=== PATIENT | female | born 2000 | race Asian ===

== ENCOUNTER 2021-03-29 12:14 | Outpatient (REF) | payer OTHER, SELFPAY ==
[2021-03-29 13:46] LABS: Basophils Percent Auto 0.6 % (0-2); Eosinophils Percent Auto 0.6 % (0-4); Hematocrit 37.3 % (37-47); Hemoglobin 12.4 g/dl (12.0-16.0); Imm Gran Abs Auto 0.01 X10*3/uL (0.00-0.03); Imm Gran Pct Auto 0.2 % (0.0-0.4); Lymphocytes Absolute Auto 1.7 X10*3/uL (1.2-4.9); Lymphocytes Percent Auto 35.3 % (20-40); MANUAL DIFF FLAG NO; Mean Corpuscular HGB Conc 33.2 g/dl (31.0-35.0); Mean Corpuscular Hemoglobin 30.2 pg (27.0-33.0); Mean Corpuscular Volume 90.8 fL (80-98); Mean Platelet Volume 9.4 fL (9.4-12.3); Monocytes Absolute Auto 0.3 X10*3/uL (0.1-1.2); Monocytes Percent Auto 5.4 % (2-11); Neutrophils Absolute Auto 2.8 X10*3/uL (2.0-8.3); Neutrophils Percent Auto 57.9 % (45-73); Platelet Count 344 X10*3/uL (160-400); Red Blood Count 4.11 X10*6/uL (4.20-5.50); Red Cell Distribution Width 12.4 % (11.0-16.0); White Blood Count 4.8 X10*3/uL (4.8-10.8)
[2021-03-29 14:25] LABS: Anion Gap 11 (12-20); Blood Urea Nitrogen 10 mg/dL (9-16); Calcium 9.1 mg/dL (8.4-10.2); Carbon Dioxide 29 mmol/L (22-29); Chloride 105 mmol/L (96-108); Estimated Glomerular Filt Rate > 60; Glucose Random 88 mg/dL (60-115); Potassium 4.5 mmol/L (3.3-5.1); Sodium 140 mmol/L (135-145)
[2021-03-31 05:47] LABS: Rubella IgG Antibody 7.36 Index
[2021-04-01 03:31] LABS: ~Hepatitis B Surface Antibody REACTIVE (Nonreactive)
[2021-04-02 16:32] LABS: TS Negative Control Passed; TS Panel A 0; TS Panel B 0; TS Positive Control Passed; TSpotTB Negative (SeeBelow)
== END 2021-03-29 12:15 | disposition home or self-care (01) ==
LOC: HO.10HDL 12:14
PROVIDERS: Visit Provider Internal Medicine
DX: Z01.84 Encounter for antibody response examination (principal); Z11.1 Encounter for screening for respiratory tuberculosis
CPT/HCPCS: 36415; 80048; 85025; 86481; 86706; 86735; 86762; 86765; 86787

== ENCOUNTER 2022-01-14 15:41 | Outpatient (REF) | payer OTHER, SELFPAY ==
[2022-01-14 15:58] LABS: MANUAL DIFF FLAG NO
[2022-01-14 16:28] LABS: Basophils Percent Auto 0.3 % (0-2); Eosinophils Percent Auto 0.3 % (0-4); Hematocrit 39.4 % (37.0-47.0); Hemoglobin 13.2 g/dl (12.0-16.0); Imm Gran Abs Auto 0.01 X10*3/uL (0.00-0.03); Imm Gran Pct Auto 0.2 % (0.0-0.4); Lymphocytes Percent Auto 30.4 % (20-40); Mean Corpuscular HGB Conc 33.5 g/dl (31.0-35.0); Mean Corpuscular Hemoglobin 29.4 pg (27.0-33.0); Mean Corpuscular Volume 87.8 fL (80.0-98.0); Mean Platelet Volume 9.1 fL (9.4-12.3); Monocytes Absolute Auto 0.3 X10*3/uL (0.1-1.2); Monocytes Percent Auto 4.8 % (2-11); Neutrophils Absolute Auto 4.1 x10*3/uL (2.0-8.3); Platelet Count 377 X10*3/uL (160-400); Red Blood Count 4.49 X10*6/uL (4.20-5.50); Red Cell Distribution Width 12.2 % (11.0-16.0); White Blood Count 6.4 X10*3/uL (4.8-10.8)
[2022-01-14 16:50] LABS: Anion Gap 11 (12-20); Blood Urea Nitrogen 12 mg/dL (9-16); Calcium 9.9 mg/dL (8.4-10.2); Carbon Dioxide 26 mmol/L (22-29); Chloride 106 mmol/L (96-108); Estimated Glomerular Filt Rate > 60; Glucose Random 85 mg/dL (60-115); Potassium 4.3 mmol/L (3.3-5.1); Sodium 139 mmol/L (135-145)
[2022-01-16 17:41] LABS: TS Negative Control Passed; TS Panel A 0; TS Panel B 0; TS Positive Control Passed; TSpotTB Negative (Negative)
== END 2022-01-14 15:42 | disposition home or self-care (01) ==
LOC: HO.LAB 15:41
PROVIDERS: PCP Internal Medicine; Visit Provider Internal Medicine
DX: Z02.0 Encounter for examination for admission to educational institution (principal); Z11.1 Encounter for screening for respiratory tuberculosis
CPT/HCPCS: 36415; 80048; 85025; 86481; 86735; 86762

== ENCOUNTER 2022-10-24 13:58 | Outpatient (REF) | payer OTHER, SELFPAY ==
[2022-10-24 14:08] LABS: MANUAL DIFF FLAG NO
[2022-10-24 14:31] LABS: Basophils Percent Auto 0.5 % (0-2); Eosinophils Percent Auto 0.5 % (0-4); Hematocrit 41.9 % (37.0-47.0); Hemoglobin 13.9 g/dl (12.0-16.0); Imm Gran Abs Auto 0.02 X10*3/uL (0.00-0.03); Imm Gran Pct Auto 0.3 % (0.0-0.4); Mean Corpuscular HGB Conc 33.2 g/dl (31.0-35.0); Mean Corpuscular Hemoglobin 29.8 pg (27.0-33.0); Mean Corpuscular Volume 89.7 fL (80.0-98.0); Mean Platelet Volume 9.1 fL (9.4-12.3); Monocytes Absolute Auto 0.4 X10*3/uL (0.1-1.2); Monocytes Percent Auto 5.7 % (2-11); Neutrophils Absolute Auto 3.9 x10*3/uL (2.0-8.3); Platelet Count 389 X10*3/uL (160-400); Red Blood Count 4.67 X10*6/uL (4.20-5.50); Red Cell Distribution Width 12.2 % (11.0-16.0); White Blood Count 6.3 X10*3/uL (4.8-10.8)
[2022-10-24 14:56] LABS: Anion Gap 14 (12-20); Blood Urea Nitrogen 15 mg/dL (9-16); Calcium 9.9 mg/dL (8.4-10.2); Carbon Dioxide 28 mmol/L (22-29); Chloride 105 mmol/L (96-108); Estimated Glomerular Filt Rate > 60; Glucose Random 80 mg/dL (60-115); Potassium 4.7 mmol/L (3.3-5.1); Sodium 142 mmol/L (135-145)
[2022-10-27 09:13] LABS: TS Negative Control Passed; TS Panel A 0; TS Panel B 1; TS Positive Control Passed; TSpotTB Negative (Negative)
== END 2022-10-24 13:59 | disposition home or self-care (01) ==
LOC: HO.LAB 13:58
PROVIDERS: PCP Internal Medicine; Visit Provider Internal Medicine
DX: Z02.0 Encounter for examination for admission to educational institution (principal); Z11.1 Encounter for screening for respiratory tuberculosis
CPT/HCPCS: 36415; 80048; 85025; 86481

== ENCOUNTER 2023-02-11 15:14 | Outpatient (REF) | payer OTHER, SELFPAY ==
--- NOTE | ~2023-02-11 | XR_ITS ---
EXAMINATION: XR SHOULDER, RIGHT XR CLAVICLE, RIGHT CLINICAL INFORMATION: Pain. COMPARISON: None available. TECHNIQUE: AP external rotation, Grashey, scapular Y, and axillary views of the right shoulder. Straight AP and cephalad angulated AP views of the right clavicle. FINDINGS: The bones and soft tissues are normal. No fracture. Glenohumeral and acromioclavicular alignment is anatomic with normal joint space. No abnormal soft tissue calcifications. XR/XR shoulder RT min 2V IMPRESSION: Normal right shoulder.
--- NOTE | ~2023-02-11 | XR_ITS ---
EXAMINATION: XR SHOULDER, RIGHT XR CLAVICLE, RIGHT CLINICAL INFORMATION: Pain. COMPARISON: None available. TECHNIQUE: AP external rotation, Grashey, scapular Y, and axillary views of the right shoulder. Straight AP and cephalad angulated AP views of the right clavicle. FINDINGS: The bones and soft tissues are normal. No fracture. Glenohumeral and acromioclavicular alignment is anatomic with normal joint space. No abnormal soft tissue calcifications. XR/XR clavicle RT IMPRESSION: Normal right shoulder.
== END 2023-02-11 15:15 | disposition home or self-care (01) ==
LOC: HO.XRAY 15:14
PROVIDERS: PCP Internal Medicine; Visit Provider Internal Medicine
DX: M25.511 Pain in right shoulder (principal)
CPT/HCPCS: 73000; 73030

== ENCOUNTER 2023-03-31 14:41 | Outpatient (REF) | payer OTHER, SELFPAY ==
--- NOTE | ~2023-03-31 | MR_ITS ---
EXAMINATION: MR SHOULDER WITHOUT CONTRAST, RIGHT CLINICAL INFORMATION: Right shoulder pain and decreased range of motion. Evaluate for a rotator cuff tendon tear. COMPARISON: Right clavicle and shoulder radiographs dated 02/11/2023. TECHNIQUE: MRI of the shoulder without contrast was performed on a high-field scanner. FINDINGS: ROTATOR CUFF: Intact. No muscle atrophy or fatty infiltration. BICEPS: Intact. CORACOACROMIAL ARCH: The undersurface of the acromion is minimally curved with no subacromial spur. The acromioclavicular joint is normal. LABRUM/CAPSULE: No labral tear. Intact joint capsule. GLENOHUMERAL JOINT/MARROW: Unremarkable. MR/MR shoulder RT wo con IMPRESSION: Unremarkable examination.
== END 2023-03-31 14:42 | disposition home or self-care (01) ==
LOC: HO.MRI 14:41
PROVIDERS: PCP Internal Medicine; Visit Provider Internal Medicine
DX: M25.511 Pain in right shoulder (principal)
CPT/HCPCS: 73221

== ENCOUNTER 2023-04-29 09:49 | Outpatient (AMB) | payer OTHER, SELFPAY ==
[2023-04-29 10:01] VITALS: BMI 21.9
--- NOTE | 2023-04-29 10:01 | A.OFFVIS_ITS ---
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 States pain started about 2 yrs ago after lifting a heavy table. Reports pain is from collar bone to her shoulder blade. Pain is worse after prolong use of arm and at times has limited ROM. At times has neck pain, has shooting pain radiating down her arm. She is able to lift a gallon of milk with pain. Denies numbness or tingling. Seen by her PCP who ordered P.T. Patient has tried physical therapy but relief was temporarily. 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 She was seen by her PCP who ordered physical therapy which provided her transient relief. She states she has pain and occasional limited ROM located in her collar bone which radiates to her shoulder blade. Her pain is aggravated with prolonged use of arm. She also c/o occasional shooting neck pain which radiates down to her arm. She experiences pain with lifting a gallon of milk. She denies any numbness or tingling. 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 Review of Systems Const All systems reviewed & are unremarkable except as noted in HPI and below Physical Exam Vital Signs: BMI result Body Mass Index 21.9 Const General: cooperative, healthy appearing, comfortable, no acute distress, well developed and alert Orientation/consciousness: patient oriented x3 HEENT Head: Yes normal to inspection, Yes normocephalic and Yes atraumatic Eyes General: appearance normal, both eyes and all related structures Resp Effort & Inspection: normal respiratory effort and able to speak in complete sentences Cardio Rate: regular rate Peripheral pulses: Peripheral pulses 2+ throughout GI Palpation (GI): Soft to palpation Skin Lesions: no lesions Rashes: no rashes Neuro General: patient oriented x3 Extrem Other: Right shoulder: Normal to inspection. Tenderness over the bicipital groove and along the deltoid region of the shoulder. Forward flexion to 175, external rotation to 90, internal rotation to S1. 5/5 RTC strength. Positive Tapia. NVI. Results Reviewed Results Reviewed: XR shoulder RT min 2V IMPRESSION: Normal right shoulder. [address] [address] Magnetic Resonance Report Signed Patient: Maureen Parmar MR#: [id number] : 2000 Acct:[id number] Age/Sex: 22 / F ADM Date: 03/31/23 Loc: HO.MRI Attending Dr: Brandt Capellan MD Ordering Physician: Brandt Capellan MD Date of Service: 03/31/23 Procedure(s): MR shoulder RT wo con Accession Number(s): [id number] cc: Brandt Capellan MD~ EXAMINATION: MR SHOULDER WITHOUT CONTRAST, RIGHT CLINICAL INFORMATION: Right shoulder pain and decreased range of motion. Evaluate for a rotator cuff tendon tear. COMPARISON: Right clavicle and shoulder radiographs dated 02/11/2023. TECHNIQUE: MRI of the shoulder without contrast was performed on a high-field scanner. FINDINGS: ROTATOR CUFF: Intact. No muscle atrophy or fatty infiltration. BICEPS: Intact. CORACOACROMIAL ARCH: The undersurface of the acromion is minimally curved with no subacromial spur. The acromioclavicular joint is normal. LABRUM/CAPSULE: No labral tear. Intact joint capsule. GLENOHUMERAL JOINT/MARROW: Unremarkable. MR/MR shoulder RT wo con IMPRESSION: Unremarkable examination. Assessment & Plan Assessment & Plan (1) Biceps tendonitis on right: Code(s): M75.21 - Bicipital tendinitis, right shoulder (2) Rotator cuff impingement syndrome of right shoulder: Code(s): M75.41 - Impingement syndrome of right shoulder Plan We discussed options which include PT, NSAIDs and injections. The patient will defer on the injection today and proceed with PT and NSAIDs. I did send her a prescription of naproxen to take twice a day for 2 weeks and PRN thereafter. If symptoms persist or worsens over the next 6 weeks, patient will contact the office for an injection, otherwise follow-up as needed. Orders: Orders PT Evaluation and Treatment Today M75.21 - Bicipital tendinitis, right shoulder, M75.41 - Impingement syndrome of right shoulder Medications: New naproxen 500 mg PO BID 60 tabs 3RF 30 days M75.21 - Bicipital tendinitis, right shoulder, M75.41 - Impingement syndrome of right shoulder naproxen 500 mg PO BID 60 tabs 3RF 30 days S93.409A - Sprain of unspecified ligament of unspecified ankle, initial encounter Patient Instructions: Scribed for Angelica Gonzalez PA-C, by Paul Pompa medical cost consultant, on 04/29/2023 at 10:00 AM EST. I, Angelica Gonzalez PA-C, have personally reviewed and agree with the information entered by the scribe. Coding Level of Care Code New Pt Level 3 (15952) Diagnoses Biceps tendonitis on right M75.21 Rotator cuff impingement syndrome of right shoulder M75.41
== END 2023-04-29 10:51 | disposition home or self-care (01) ==
PROVIDERS: PCP Internal Medicine; Visit Provider Physician Assistant
DX: M75.21 Bicipital tendinitis, right shoulder (principal); M75.41 Impingement syndrome of right shoulder
CPT/HCPCS: 99203

== ENCOUNTER → 2023-04-29 09:49 | Outpatient (BNVA) | payer OTHER, SELFPAY | PROVIDERS: PCP Internal Medicine; Visit Provider Physician Assistant | DX: M75.41 Impingement syndrome of right shoulder (principal); M75.21 Bicipital tendinitis, right shoulder | CPT/HCPCS: 99202 ==

== ENCOUNTER 2023-06-12 11:00 | Outpatient (RCR) | payer OTHER, SELFPAY | END 2023-10-06 11:02 | disposition home or self-care (01) | LOC: HO.PTWFD 11:00 | PROVIDERS: PCP Internal Medicine; Visit Provider Internal Medicine | DX: M25.511 Pain in right shoulder (principal) | CPT/HCPCS: 97110; 97140; 97150; 97161; 97164; 97535 ==

== ENCOUNTER 2024-04-28 11:49 | Outpatient (REF) | payer OTHER, SELFPAY ==
[2024-04-28 13:05] LABS: MANUAL DIFF FLAG NO
[2024-04-28 13:23] LABS: Basophils Percent Auto 0.8 % (0-2); Eosinophils Percent Auto 0.6 % (0-4); Hematocrit 39.7 % (37.0-47.0); Hemoglobin 13.4 g/dl (12.0-16.0); Imm Gran Abs Auto 0.02 X10*3/uL (0.00-0.03); Imm Gran Pct Auto 0.4 % (0.0-0.4); Lymphocytes Absolute Auto 2.1 X10*3/uL (1.2-4.9); Lymphocytes Percent Auto 41.3 % (20-40); Mean Corpuscular HGB Conc 33.8 g/dl (31.0-35.0); Mean Corpuscular Hemoglobin 29.8 pg (27.0-33.0); Mean Corpuscular Volume 88.2 fL (80.0-98.0); Mean Platelet Volume 9.4 fL (9.4-12.3); Monocytes Absolute Auto 0.3 X10*3/uL (0.1-1.2); Monocytes Percent Auto 6.5 % (2-11); Neutrophils Absolute Auto 2.5 x10*3/uL (2.0-8.3); Neutrophils Percent Auto 50.4 % (45-73); Platelet Count 325 X10*3/uL (160-400); Red Cell Distribution Width 12.2 % (11.0-16.0)
[2024-04-28 13:57] LABS: Alanine Aminotransferase 70 U/L (0-31); Albumin Level 4.8 g/dL (3.5-5.0); Alkaline Phosphatase 126 U/L (39-117); Anion Gap 11 (12-20); Aspartate Amino Transferase 34 U/L (5-31); Bilirubin Total 0.8 mg/dL (0.0-1.0); Blood Urea Nitrogen 8 mg/dL (9-16); Calcium 9.8 mg/dL (8.4-10.2); Carbon Dioxide 27 mmol/L (22-29); Chloride 105 mmol/L (96-108); Estimated Glomerular Filt Rate > 60; Glucose Random 96 mg/dL (60-115); Potassium 4.1 mmol/L (3.3-5.1); Sodium 139 mmol/L (135-145); Total Protein 7.9 g/dL (6.5-8.0)
[2024-04-28 13:58] LABS: Free T4 (Free Thyroxine) 0.95 ng/dL (0.71-1.85); Thyroid Stimulating Hormone 1.22 uIU/mL (0.32-4.0); Vitamin D 25-OH Total 21.1 ng/mL (>30)
[2024-04-28 14:55] LABS: Vitamin B12 354 pg/mL (200-900)
[2024-04-29 10:37] LABS: Follicle Stimulating Hormone 3.9 mIU/mL; Lutenizing Hormone 9.7 mIU/mL
[2024-04-30 21:44] LABS: TS Negative Control Passed; TS Panel A 0; TS Panel B 0; TS Positive Control Passed; TSpotTB Negative (Negative)
== END 2024-04-28 11:50 | disposition home or self-care (01) ==
LOC: HO.10HDL 11:49
PROVIDERS: Visit Provider Internal Medicine
DX: Z00.00 Encounter for general adult medical examination without abnormal findings (principal); R53.83 Other fatigue; N94.6 Dysmenorrhea, unspecified
CPT/HCPCS: 36415; 80053; 82306; 82607; 83001; 83002; 84439; 84443; 85025; 86140; 86481

== ENCOUNTER 2025-06-28 10:56 | Outpatient (AMB) | payer OTHER, SELFPAY ==
--- OUTSIDE RECORDS SUMMARY | 2025-03-07 05:30 | XMS_ITS ---
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 Name Role Phone SHONNA ANGUIANO Unavailable [phone] REASON FOR VISIT IRREGULAR PERIODS Problems Problem Type SNOMED Code ICD Code Onset Dates Problem Status W/U Status Risk Notes Problem Abnormal uterine bleeding ([id number] 00) Abnormal uterine and vaginal bleeding, unspecified (N93.9) Active confirmed Encounters Encounter Location Date Provider Diagnosis [address] [address] 03/07/2025 SHONNA ANGUIANO Abnormal uterine and vaginal bleeding, unspecified N93.9 Assessments Encounter Date Diagnosis (ICD Code) Assessment Notes Treatment Notes Treatment Clinical Notes Section Notes 03/07/2025 Abnormal uterine and vaginal bleeding, unspecified (ICD-10 - N93.9) Plan Of Treatment No Information Progress Notes * MAUREEN CHAPMANDOB:2000 (25 yo F)Acc No.[id number]:03/07/2025 Progress Note Patient: MAUREEN HALLMAN Provider: Adela ANGUIANO MD :2000 A ge:24 Y S ex:Female Date:03/07/2025 Address:[address] [place] [address] Subjective: * Chief Complaints: * 1 . IRREGULAR PERIODS. * HPI: G YN (Problems): Maureen is a 24 yo G with LMP who presents as a new patient today. 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 24 year old female presents with c/o Abnormal bleeding:. * ROS: G eneral/Constitutional: Denies C hills. D enies F ever. D enies L ightheadedness. D enies W eight gain. D enies W eight loss. E NT: Denies N osebleed. E ndocrine: Denies A cne. D enies C old intolerance. D enies H eat intolerance. D enies H ot flashes. B reast: Denies B reast pain. D enies N ipple discharge.? G astrointestinal: Denies A bdominal pain. D enies B lood in stool.?Denies H ematemesis. D enies R ectal bleeding. H ematology: Denies E asy bruising. D enies F amily member with bleeding problems. W omen Only: Denies I rregular menses. D enies V aginal bleeding between periods. G enitourinary: Denies B lood in urine. * Medical History: Objective: * Vitals: * Examination: G eneral Examination: GENERAL APPEARANCE: pleasant, well nourished, in no acute distress, grain packer present in room. SKIN: warm and dry. G enitourinary - Female: ABDOMEN: soft, non-tender, no mass. EXTERNAL GENITALS: normal. URETHRAL MEATUS: normal. VAGINA: healthy pink mucosa without any lesions or abnormal discharge, no lacerations. ANUS/PERINEUM: normal. CERVIX: downward, normal appearing, no cervical movement tenderness. UTERUS: normal size, mobile, non tender. OVARIES: no masses felt in adnexa. P sychiatry: AFFECT: appropriate. ATTITUDE: cooperative. SPEECH: clear. Assessment: * Assessment: 1. A bnormal uterine and vaginal bleeding, unspecified - N93.9 (Primary) Plan: * Treatment: * Images: Billing Information: * Visit Code: * Procedure Codes: * Electronic signature of SHONNA ANGUIANO MD on 06/28/2025 at 01:56 PM EDT Sign off status: Pending * Provider: Adela ANGUIANO MD Date: 0 03/07/2025 Generated for Johnnie bojorquez/Dennis/Jakeitting on: 06/28/2025 01:56 PM EDT History and Physical Notes * Examination Category Sub-Category Detail Notes Category Not es Genitourinary - Female ABDOMEN: soft, non-tender, no mass EXTERNAL GENITALS: normal VAGINA: healthy pink mucosa without any lesions or abnormal discharge, no lacerations CERVIX: downward, normal jefry earing, no cervical movement tenderness UTERUS: normal size, mobile, non tender OVARIES: no masses felt in ad nexa URETHRAL MEATUS: normal ANUS/PERINEUM: normal Psychiatry ATTITUDE: cooperative AFFECT: appropriate SPEECH: clear General Examination GENERAL APPEARANCE: pleasant , well nourished, in no acute distress, grain packer present in room SKIN: warm and dry
--- NOTE | 2025-06-28 08:24 | MHC.PC.OV ---
Vital Signs 06/28/25 11:00 Height 5 ft 7 in Weight 153 lb BMI 24.0 BP 122/80 Blood Pressure Location Rt brachial Position Sitting Pulse 76 Pulse Source Pulse Oximeter Temp 97.8 F Temp Source Temporal Artery Scan Pulse Oximetry (%) 99 Oxygen Delivery Method Room Air Intake Visit Reasons: Routine/ Dr Capellan Hl7 Interface Developer Required: No Accompanied by: Self / Same As Patient Allergies No Known Allergies Allergy (Verified 06/28/25 11:03) Tobacco use date assessed: 06/28/25 Dental Screening Dental Screen Date: 06/28/25 Did you have a dental visit in the last 12 months?: Yes Did you have a dental problem in the last 6 months where you did not have access to dental care?: No HPI HPI Comments History of Present Illness Details The patient is a 25-year-old female presenting with right shoulder pain. The shoulder pain has persisted for over four years, with previous treatments including physical therapy and cortisone injections proving ineffective. In [place], doctors identified cartilage issues under the acromion and suggested surgery, which the patient declined due to school commitments. A PRP (platelet rich plasma) injection in [place] provided some relief, and the patient was advised to continue physical therapy, which has not been attended since last year. The patient also reports neck pain, potentially linked to posture and muscle tension, exacerbated by schoolwork and relieved by rest. [facility] Medical History (Updated 06/28/25 @ 11:18 by MARIPOSA Fisher) Right shoulder pain Family History (Updated 06/28/25 @ 11:04 by Trixie Sandhu MA) Mother No problems noted. Father No problems noted. 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 1. Little interest or pleasure in doing things: not at all 2. Feeling down, depressed, or hopeless: not at all 3. Trouble falling or staying asleep, or sleeping too much: not at all 4. Feeling tired or having little energy: not at all 5. Poor appetite or overeating: not at all 6. Feeling bad about yourself - or that you are a failure or have let yourself or your family down: not at all 7. Trouble concentrating on things, such as reading the newspaper or watching television: not at all 8. Moving or speaking so slowly that other people could have noticed. Or the opposite - being so fidgety or restless that you have been moving around a lot more than usual: not at all 9. Thoughts that you would be better off or of hurting yourself in some way: not at all Total score: 0 Source: Developed by Drs. Saleem Eddy, Kelli Healy, Tomi Perez and colleagues, with an educational ladonna from [employer]. Thrive Questionnaire Date Thrive assessed: 06/28/25 I am a: Patient Within the past 12 months, did the food you bought not last and you didn't have the money to get more?: Never true Within the past 12 months, did you worry whether your food would run out before you got money to buy more?: Never true Do you have trouble paying for medicines?: No Do you have trouble getting transportation to medical appointments?: No Do you have trouble paying your heating and electricity bill?: No Do you have trouble taking care of your child, family member or friend?: No Do you have trouble with day-to-day activities such as bathing, preparing meals, shopping, managing finances, etc.?: No Are you currently unemployed and looking for a job?: No Are you interested in more education?: No THRIVE Score: 0 AUDIT C Alcohol Use Questionnaire (AUDIT-C) 1. How often do you have a drink containing alcohol?: Monthly or less 2. How many drinks containing alcohol do you have on a typical day when you are drinking?: 1 or 2 3. How often do you have six or more drinks on one occasion?: Less than monthly Total Score: 2 GEN-7 AMB Questionnaire GEN-7 Date GEN - 7 assessed: 06/28/25 Feeling nervous, anxious, or on edge: 0 = Not at all Not being able to stop or control worryin = Not at all Worrying too much about different things: 0 = Not at all Trouble relaxin = Not at all Being so restless that it is hard to sit still: 0 = Not at all Becoming easily annoyed or irritable: 0 = Not at all Feeling afraid as if something awful might happen: 0 = Not at all Total GEN-7 score (0-4 normal; 5-9 mild; 10-14 moderate; 15-21 severe): 0 Source: Developed by Drs. Saleem Eddy, Kelli Healy, Tomi Perez and colleagues, with an educational ladonna from [employer]. Review of Systems Const Details: CONSTITUTIONAL Negative HEAD/NECK Reports neck pain associated with posture and muscle tension, exacerbated by schoolwork RESPIRATORY Negative CARDIOVASCULAR Negative MUSCULOSKELETAL Reports chronic shoulder pain for over four years, denies tenderness upon palpation. No arm weakness NEUROLOGICAL No numbness or tingling PSYCHIATRIC Negative Physical exam (Primary Care) Vital Signs: Last Vital Signs Temp 97.8 F 06/28/25 11:00 Pulse 76 06/28/25 11:00 BP 122/80 06/28/25 11:00 Pulse Ox 99 06/28/25 11:00 Oxygen Delivery Method Room Air 06/28/25 11:00 BMI result Body Mass Index 24.0 GENERAL Well developed, Well nourished, in no apparent distress HEENT Head-Normocephalic Neck- Supple, No lymphadenopathy, thyroid WNL RESPIRATORY Normal I:E, Clear to auscultation CARDIOVASCULAR Regular, rate and rhthym, No murmurs or rubs MUSCULOSKELETAL Right shoulder- Full ROM, crepitus noted, nontender, some pain with motion. DTR 2+ NEUROLOGICAL Gait normal PSYCHIATRIC Oriented to person, place and time Mood and affect WNL Appearance WNL Speech WNL Thought processes WNL Tobacco/Smoking Status: Tobacco use Status Tobacco use date assessed 06/28/25 06/28/25 08:27 Patient Tobacco Use Status Never used Tobacco 06/28/25 08:27 e-Cigarette/Vaping Use Never Used 06/28/25 08:27 PHQ-9: PHQ-9 Score PHQ-9: Total score 0 06/28/25 11:04 Thrive Assessment: Date of Thrive Assessment Date Thrive assessed 06/28/25 06/28/25 08:27 Results Reviewed Results Reviewed: ADM Date: 03/31/[address]: Brandt Capellan MD Ordering Physician: Brandt Capellan MD Date of Service: 03/31/23 Procedure(s): MR shoulder RT wo con Accession Number(s): [id number] cc: Brandt Capellan MD~ EXAMINATION: MR SHOULDER WITHOUT CONTRAST, RIGHT CLINICAL INFORMATION: Right shoulder pain and decreased range of motion. Evaluate for a rotator cuff tendon tear. COMPARISON: Right clavicle and shoulder radiographs dated 02/11/2023. TECHNIQUE: MRI of the shoulder without contrast was performed on a high-field scanner. FINDINGS: ROTATOR CUFF: Intact. No muscle atrophy or fatty infiltration. BICEPS: Intact. CORACOACROMIAL ARCH: The undersurface of the acromion is minimally curved with no subacromial spur. The acromioclavicular joint is normal. LABRUM/CAPSULE: No labral tear. Intact joint capsule. GLENOHUMERAL JOINT/MARROW: Unremarkable. MR/MR shoulder RT wo con IMPRESSION: Unremarkable examination. Coding Level of Care Code New Pt New Pt Level 3 (51549) Patient Type New Diagnoses Right shoulder pain M25.511 Time Spent (min) 25 Comment Time spent on chart review, H&P, patient education, placing referral Assessment & Plan Assessment & Plan (1) Right shoulder pain: Code(s): M25.511 - Pain in right shoulder Category: Medical Plan: The patient will be referred to physical therapy for muscle stretching and strengthening, as previous treatments like cortisone injections were ineffective. Anti-inflammatory medication may be considered if the pain worsens. Patient is resistant to taking medication. Patient to follow up in 8 weeks or sooner if symptoms persist or worsen. Plan I discussed with the patient the importance of physical therapy for managing shoulder and neck pain, emphasizing muscle stretching and strengthening. We also talked about the potential use of anti-inflammatory medication if the pain worsens and the possibility of ultrasonic therapy based on the physical therapist's evaluation. A follow-up appointment was scheduled in eight weeks to assess progress. Orders: Orders PT Evaluation and Treatment Today M25.511 - Pain in right shoulder, M75.41 - Impingement syndrome of right shoulder Patient Instructions: - Attend physical therapy sessions as referred for shoulder and neck pain management. - Monitor pain levels and report any worsening symptoms. - Follow up in eight weeks to evaluate progress.
[2025-06-28 11:00] VITALS: BP 122/80; PULSE 76; TEMP 36.6; O2SAT 99; BMI 24.0
--- OUTSIDE RECORDS SUMMARY | 2025-06-28 13:56 | XMS_ITS | Patient Health Record ---
Author Organization [facility] Address [address] [place] [address] Care Team Providers Care Pest Control Applicator Name Role Phone SHONNA ANGUIANO Unavailable [phone] Reason For Referral No Information Problems Problem Type SNOMED Code ICD Code Onset Dates Problem Status W/U Status Risk Notes Problem Abnormal uterine bleeding ([id number] 00) Abnormal uterine and vaginal bleeding, unspecified (N93.9) Active confirmed Plan Of Treatment No Information Insurance Providers Payer Name Payer Address Payer Phone Subscriber Number Group Number Insured Name Patient Relationship to Insured Coverage Start Date Coverage End Date [facility] [address] [address] [place] [address] ETSEFANY CHAPMAN Self - patient is the insured
--- OUTSIDE RECORDS SUMMARY | 2025-06-28 13:56 | XMS_ITS | Encounter Summary ---
Author Organization [facility] Address [address] [place] [address] [place] [phone] Phone Care Team Providers Care Health Lead Name Role Phone Brandt Capellan MD Primary Care Provider Encounter Details Date Type Department Care Team (Late st Contact Info) Description 09/27/2024 Procedure Pass [facility] Outpatient Care - Ultrasound [address] [place] [address] Social History Tobacco Use Types Packs/Day Years Used Date Smoking Tobacco: Never Assessed Education Answer Date Recorded Are you interested in more education? Not on ena e 11/26/2023 Are you concerned about learning? Not on file 11/26/2023 No 11/26/2023 No 11/26/2023 Digital Access Answer Date Recorded No 11/26/2023 No 11/26/2023 Reliable internet access at home? Not on file 11/26/2023 Device with a working camera? Not on file Comments Unknown Sex and Gender Information Value Date Recorded Sex Assigned at Female 11/26/2023 10:50 AM EST Legal Sex Female 10:41 AM EST Gender Identity Female 11/26/2023 10:50 AM EST Sexual Orientation Straight 11/26/2023 10 :50 AM EST documented as of this encounter Plan of Treatment Not on file documented as of this encounter Visit Diagnoses Not on filedocumented in this encounter Care Teams Health Lead Relationship Specialty Start Date End Date Brandt Capellan MD [address] [place] [address] [place] [address] PCP - General Internal Medicine 11/26/23 documented as of this encounter Additional Source Comments The information contained in this document represents components of the legal health record. It is not the complete legal health record.[facility]
--- OUTSIDE RECORDS SUMMARY | 2025-06-28 13:56 | XMS_ITS | Clinical Summary ---
Author Organization [facility] [address] [facility] Address [address] [facility] [place] [address] Phone Care Team Providers Care Funeral Driver Name Role Phone Brandt Capellan MD Primary Care Provider [phone] Allergies No known active allergies Medications fluticasone propionate (FLONASE) 50 mcg/actuation nasal spray 05/07/2024 Active amoxicillin-clav ulanate (AUGMENTIN) 875-125 mg per tablet Take 1 tablet by mouth 2 (two) times a day. for 7 days 05/07/2024 Active cholecalciferol (VITAMIN D3) 1,250 mcg (50,000 unit) tabletIndication s:Vitamin D deficiency Take 1 tablet (50,000 Units total) by mouth every 7 (seven) days. 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 11/2024 Overview (02/17/2025): Per [facility], needs cotesting in 3 years Medical History Medical History Date Comments Polycystic ovary syndrome 2020 Family History Medical History Relation Name Comments Breast cancer Neg Hx Colon cancer Neg Hx Kidney cancer Neg Hx Ovarian cancer Neg Hx Pancreatic cancer Neg Hx Prostate cancer Neg Hx Uterine cancer Neg Hx Social History Tobacco Use Types Packs/Day Years Used Date Smoking Tobacco: Never Smokeless Tobacco: Never Tobacco Cessation:Counseling Given: Not Answered Alcohol Use Standard Drinks/Week Comments Never 0 (1 standard drink = 0.6 oz pur e alcohol) Housing Instability Answer Date Recorde d Are you worried that in the next 2 months you may not have stable housing? No 11/09/2024 Food Access & Nutrition Answer Date Rec orded Do you have access to a vari ety of food including fruits and vegetables? Yes 11/09/2024 Health Literacy Answer Date Recorded How often do you need to hav e someone help you when you read instructions, pamphlets, or other written material from your doctor or pharmacy? Never 11/09/2024 Caregiver: How often do you need to have someone help you when you read instructions, pamphlets, or other written material from your doctor or pharmacy? Not on file 11/09/2024 Financial Risk Answer Date Recorded How hard is it for you to pa y for the very basics like food, housing, medical care, and air conditioning / heating? Patient declined 11/09/2024 Transportation Answer Date Recorded Has the lack of transportati on kept you from meetings, work, or from getting things needed for daily living? No Has the lack of transportati on kept you from medical appointments or from getting medications? No 11/09/2024 Social Isolation Answer Date Recorded How often do you feel lonely or isolated from th ose around you? Never 11/09/2024 Food Risk Answer Date Recorded Within the past 12 months we worried whether our food would run out before we got money to buy more. Never true 11/09/2024 Within the past 12 months th e food we bought just didn't last and we didn't have money to get more. Never true 11/09/2024 Dependent Care Answer Date Recorded Do you need help finding or paying for care for your loved ones. For example, child care lead teacher or elderly care for an older adult? No 11/09/2024 Education Answer Date Recorded Do you think completing more education or training, like finishing a GED, going to college, or learning a trade, would be helpful for you? Yes 11/09/2024 Employment and Income Answer Date Recor ded During the last four weeks, have you been actively looking for work? No 11/09/2024 Living Situation Answer Date Recorded What is your living situation? 0 11/09/2024 Comments No Sex and Gender Information Value Date Recorded Sex Assigned at Not on file Legal Sex Female 3:44 PM EDT Gender Identity Not on file Sexual Orientation Not on file Obstetrics History Para Term AB IAB SAB Ectopic Multiple Livin g Live Births 0 0 0 0 0 0 0 0 Last Filed Vital Signs Vital Sign Reading Time Taken Comments Blood Pressure 108/70 02/10/2025 1:26 PM EDT Pulse 74 02/10/2025 1:26 PM EDT Temperature 36.3 C (97.3 F) 11/30/2024 10:28 AM EST Respiratory Rate - - Oxygen Saturation 99% 11/30/2024 10:28 AM EST Inhaled Oxygen Concentration - - Weight 68.9 kg (152 lb) 02/10/2025 1:26 PM EDT Height 170.2 cm (5' 7 ) 11/30/2024 10:28 AM EST Body Mass Index 23.81 11/30/2024 10:28 AM EST Plan of Treatment Health Maintenance Due Date Last Done Comments DTaP,Tdap,and Td Vaccines (1 - Tdap) 2017 Hepatitis B Vaccines (1 of 3 - 19+ 3-dose series) 2017 HIV Screening 07/28/2024 Hepatitis C Screening 07/28/2024 COVID-19 Vaccine (1 - 2023-2 5 season) 2025 Influenza Vaccine (#1) 2025 Social Influencers of Health Screening 11/09/2025 11/09/2024 Cervical Cancer Screening: P ap Smear 02/11/2028 02/10/2025, 02/10/2025 Depression Screening Completed 02/03/2025 HIB Vaccines Aged Out No longer eligi ble based on patient's age to complete this topic HPV Vaccines Aged Out No longer eligi ble based on patient's age to complete this topic Hepatitis A Vaccines Aged Out No long er eligible based on patient's age to complete this topic IPV Vaccines Aged Out No longer eligi ble based on patient's age to complete this topic MMR Vaccines Aged Out No longer eligi ble based on patient's age to complete this topic Meningococcal ACWY Vaccine Aged Out N o longer eligible based on patient's age to complete this topic Meningococcal B Vaccine Aged Out No l onger eligible based on patient's age to complete this topic Pneumococcal Vaccine: Pediatrics (0 to 5 Years) and At-Risk Patients (6 to 49 Years) Aged Out No longer eligible b ased on patient's age to complete this topic RSV Immunization Patients Under 20 months Aged Out No longer eligible b ased on patient's age to complete this topic Varicella Vaccines Aged Out No longer eligible based on patient's age to complete this topic Procedures Procedure Name Priority Date/Time Associated Diagnosis Comments PAP SMEAR Routine 02/10/2025 2:06 PM EDT Encounter for gynecological examination without abnormal finding from Last 3 Months or Most Recently Relevant to Health Maintenance Results * (ABNORMAL) Pap Smear (02/10/2025 2:06 PM EDT) Interpretation Atypical squamous cells of undetermined significance(A) 02/16/2025 1:54 PM EDT [facility] General Categorization Epithelial cell abnormality, see interpretation 02/16/2025 1:54 PM EDT [facility] LMP 02/05/2025 02/16/2025 1:54 PM EDT [facility] Specimen Adequacy Satisfactory for evaluation, endocervical/tra nsformation zone component present 02/16/2025 1:54 PM EDT [facility] Pap Methodology Liquid Based Pap Test 02/16/2025 1:54 PM EDT [facility] Disclaimer The Pap test is a screening test which carries an inherent false negative rate. These test results should be correlated with the patient's clinical findings and history. This Pap test was processed using an automated screening system. Technical cytopathology services provided by [facility], at [address] [place] [address] (CLIA # [id number]/Tracy Ruvalcaba MD, Data Center Architect.) 02/16/2025 1:54 PM EDT [facility] Console Pap Interpretation Reported 02/16/2025 1:54 PM T [facility] Brushing/Spatula Cervix uteri structure / Unknown 02/10/2025 2:06 PM EDT 02/10/2025 2:06 PM EDT Madai Pruitt [facility] CYTOLOGY ORDERABLES Fin al Result [facility] [address] [place] [address], from Last 3 Months or Most Recently Relevant to Health Maintenance Insurance [facility] [employer] [place] [address] Care Teams Funeral Driver Relationship Specialty Start Date End Date Brandt Capellan MD [address] [place] [address] Dr Perrin [place] PCP - General Internal Medicine 11/16/24
--- OUTSIDE RECORDS SUMMARY | 2025-06-28 13:56 | XMS_ITS | Encounter Summary ---
Author Organization [facility] Address [address] [place] [id number] Phone Care Team Providers Care Aurist Name Role Phone Brandt Capellan MD Primary Care Provider Encounter Details Date Type Department Care Team (Late st Contact Info) Description 07/01/2024 Transcribe Orders [facility], Radio Flouroscopy [address] [place] [address] [place]ris Social History Tobacco Use Types Packs/Day Years [...] on filedocumented in this encounter Care Teams Aurist Relationship Specialty Start Date End Date Brandt Capellan MD [address] [place] [address] [place] [address] PCP - General Internal Medicine 11/26/23 documented as of this encounter Additional Source Comments The information contained in this document represents components of the legal health record. It is not the complete legal health record.[facility]
--- OUTSIDE RECORDS SUMMARY | 2025-06-28 13:56 | XMS_ITS | Clinical Summary ---
Author Organization [facility] Address [address] [place] [phone] Phone Care Team Providers Care Central Office Repairer Supervisor Name Role Phone Brandt Capellan MD Primary Care Provider Allergies No known active allergies Medications No known medications Active Problems No known active problems Social History Tobacco Use Types Packs/Day Years [...] Orientation Straight 11/26/2023 10 :50 AM EST Last Filed Vital Signs Vital Sign Reading Time Taken Comments Blood Pressure - - Pulse - - Temperature - - Respiratory Rate - - Oxygen Saturation - - Inhaled Oxygen Concentration - - Weight 63.5 kg (140 lb) 12/17/2023 12:47 PM EST Height 170.2 cm (5' 7 ) 12/17/2023 12:47 PM EST Body Mass Index 21.93 12/17/2023 12:47 PM EST Plan of Treatment Health Maintenance Due Date Last Done Comments Adult Td,Tdap Booster 1998 DEPRESSION SCREENING 2010 SMOKING Hx and SMOKELESS TOB ACCO SCREENING 2011 HEPATITIS C SCREENING 2016 HIV ONE-TIME SCREENING (18-6 5 YEARS) 2016 PAP SMEAR 2019 INFLUENZA VACCINE (#1) 2025 COVID-19 VACCINE (2023-2 5 season) 2025 HEPATITIS A VACCINES Aged Out No long er eligible based on patient's age to complete this topic HIB VACCINES Aged Out No longer eligi ble based on patient's age to complete this topic MENINGOCOCCAL VACCINES (ACWY) Aged Out No longer eligible based on patient's age to complete this topic MENINGOCOCCAL VACCINES (B) Aged Out N o longer eligible based on patient's age to complete this topic PNEUMOCOCCAL VACCINES (0-49 years) Aged Out No longer eligible based on patient's age to complete this topic Medical Devices Not on file Insurance PartneredO PartneredO appsplit O appsplit [facility] Care Teams Central Office Repairer Supervisor Relationship Specialty Start Date End Date Brandt Capellan MD [address] [place] [address] Dr [place]ISA [id number] PCP - General Internal Medicine 11/26/23 Additional Source Comments The information contained in this document represents components of the legal health record. It is not the complete legal health record.[facility]
--- OUTSIDE RECORDS SUMMARY | 2025-06-28 13:56 | XMS_ITS | Encounter Summary ---
Author Organization [facility] Address [address] [place] [phone] Phone Care Team Providers Care Retort Fireman Name Role Phone Brandt Capellan MD Primary Care Provider Encounter Details Date Type Department Care Team (Late st Contact Info) Description 10/27/2024 Transcribe Orders [facility], Radio Flouroscopy [address] [place] [address] Franki Ochoa [address] [place] [phone] [email or web address] Social History Tobacco Use Types Packs/Day Years [...] on filedocumented in this encounter Care Teams Retort Fireman Relationship Specialty Start Date End Date Brandt Capellan MD [address] [place] [address] [place] [address] PCP - General Internal Medicine 11/26/23 documented as of this encounter Additional Source Comments The information contained in this document represents components of the legal health record. It is not the complete legal health record.[facility]
--- OUTSIDE RECORDS SUMMARY | 2025-06-28 13:56 | XMS_ITS | Encounter Summary ---
Author Organization [facility] Address [address] [place] [address] [place] [phone] Phone Care Team Providers Care Oyster Washer Name Role Phone Brandt Capellan MD Primary Care Provider Encounter Details Date Type Department Care Team (Late st Contact Info) Description 05/26/2024 Procedure Pass [facility] - Ultrasound [address] [place] [address] Social History Tobacco Use Types Packs/Day Years [...] on filedocumented in this encounter Care Teams Oyster Washer Relationship Specialty Start Date End Date Brandt Capellan MD [address] [place] [address] [place] [address] PCP - General Internal Medicine 11/26/23 documented as of this encounter Additional Source Comments The information contained in this document represents components of the legal health record. It is not the complete legal health record.[facility]
== END 2025-06-28 11:19 | disposition home or self-care (01) ==
LOC: HO.HMCHD 10:57
PROVIDERS: PCP Physician Assistant Medical; Visit Provider Physician Assistant Medical
DX: M25.511 Pain in right shoulder (principal)